=== PATIENT | male | born 1965 | race Two or more races ===

== ENCOUNTER 2017-08-01 14:00 | Outpatient (CLI) | payer BC | END 2017-08-01 23:59 | disposition home or self-care (01) | LOC: WOU 14:00 | PROVIDERS: ATTEND Specialist | DX: M65.862 Other synovitis and tenosynovitis, left lower leg (principal); E11.9 Type 2 diabetes mellitus without complications; M77.31 Calcaneal spur, right foot; M19.071 Primary osteoarthritis, right ankle and foot; Z79.4 Long term (current) use of insulin | CPT/HCPCS: 73610-TC; G0463 ==